=== PATIENT | female | born 1955 | race Caucasian/White ===

== ENCOUNTER → 2021-05-12 12:29 | Outpatient (BNVA) | payer MEDICARE, SELFPAY | PROVIDERS: Visit Provider Nurse Practitioner Family | DX: Z12.11 Encounter for screening for malignant neoplasm of colon (principal); K57.90 Diverticulosis of intestine, part unspecified, without perforation or abscess without bleeding | CPT/HCPCS: Q3014 ==

== ENCOUNTER 2021-07-07 10:09 | Day surgery (SDC) | payer MEDICARE, SELFPAY ==
--- NOTE | 2021-07-06 09:07 | HO.ANESPROP2 ---
Documented by User: Afsaneh Francois NP 07/06/21 09:10 HPI - Anesthesia Eval Consult details Narrative: 65yo F for Colonoscopy PMFSH Past Medical History Medical History Asthma CAD (coronary artery disease) History of depression Hypothyroid Migraines Surgical History Surgical History Hx of colonoscopy Social History Social History Patient Tobacco Use Status: Never used Tobacco Use of substances other than those prescribed or required for medical reasons: No Are you DNR?: No Advance Directives: No Advance Directives Information Provided: Yes Meds Allergies Allergy/AdvReac Type Severity Reaction Status Date / Time acetaminophen [From Tylox] Allergy Mild mild Verified 05/12/21 12:32 diphenhydramine Allergy Mild mild Verified 05/12/21 12:31 [From Benadryl] oxycodone [From Tylox] Allergy Mild mild Verified 05/12/21 12:32 prochlorperazine Allergy Mild mild Verified 05/12/21 12:32 [From Compazine] sumatriptan [From Imitrex] Allergy Mild mild Verified 05/12/21 12:31 azithromycin Allergy Vomiting Verified 07/07/21 10:26 codeine Allergy mild Verified 05/12/21 12:31 sulfamethoxazole Allergy Headache Verified 07/07/21 10:24 [From Bactrim] trimethoprim [From Bactrim] Allergy Headache Verified 07/07/21 10:24 Home Medications Medication Instructions Recorded Confirmed Last Taken Type albuterol sulfate 90 mcg/actuation 2 puff INHALATION Q6H PRN 05/12/21 07/03/21 07/07/21 History aerosol inhaler doxepin 25 mg capsule 25 mg PO DAILY 05/12/21 07/03/21 Unknown History levothyroxine 88 mcg tablet 88 mcg PO DAILY 05/12/21 07/03/21 Unknown History (Levoxyl) verapamil 180 mg 24 hr 180 mg PO DAILY 05/12/21 07/03/21 Unknown History capsule,extended release levalbuterol tartrate 45 INHALATION 07/03/21 07/03/21 Unknown History mcg/actuation aerosol inhaler duloxetine 60 mg capsule,delayed 1 cap PO DAILY 07/07/21 07/07/21 07/07/21 History release Exam Exam Date and Time: July 06, [id number] Assessment and Plan Assessment Anesthesia Assessment: Chart Reviewed Documented by User: Yaneli Ortiz MD 07/07/21 11:06 [facility] Past Medical History Medical History Asthma CAD (coronary artery disease) History of depression Hypothyroid Migraines Family History Family history of problems with anesthesia: No Surgical History Surgical History Hx of colonoscopy History of Problems with Anesthesia: No Social History Social History Patient Tobacco Use Status: Never used Tobacco Use of substances other than those prescribed or required for medical reasons: No Are you DNR?: No Advance Directives: No Advance Directives Information Provided: Yes Meds Allergies Allergy/AdvReac Type Severity Reaction Status Date / Time acetaminophen [From Tylox] Allergy Mild mild Verified 05/12/21 12:32 diphenhydramine Allergy Mild mild Verified 05/12/21 12:31 [From Benadryl] oxycodone [From Tylox] Allergy Mild mild Verified 05/12/21 12:32 prochlorperazine Allergy Mild mild Verified 05/12/21 12:32 [From Compazine] sumatriptan [From Imitrex] Allergy Mild mild Verified 05/12/21 12:31 azithromycin Allergy Vomiting Verified 07/07/21 10:26 codeine Allergy mild Verified 05/12/21 12:31 sulfamethoxazole Allergy Headache Verified 07/07/21 10:24 [From Bactrim] trimethoprim [From Bactrim] Allergy Headache Verified 07/07/21 10:24 Home Medications Medication Instructions Recorded Confirmed Last Taken Type albuterol sulfate 90 mcg/actuation 2 puff INHALATION Q6H PRN 05/12/21 07/03/21 07/07/21 History aerosol inhaler doxepin 25 mg capsule 25 mg PO DAILY 05/12/21 07/03/21 Unknown History levothyroxine 88 mcg tablet 88 mcg PO DAILY 05/12/21 07/03/21 Unknown History (Levoxyl) verapamil 180 mg 24 hr 180 mg PO DAILY 05/12/21 07/03/21 Unknown History capsule,extended release levalbuterol tartrate 45 INHALATION 07/03/21 07/03/21 Unknown History mcg/actuation aerosol inhaler duloxetine 60 mg capsule,delayed 1 cap PO DAILY 07/07/21 07/07/21 07/07/21 History release Exam Airway Mallampati Class: II TM Dist: >3cm Neck ROM: Full Assessment and Plan Assessment Anesthesia Assessment: Anesthesia Plan Discussed Final Anesthetic Review Family History of Problems with Anesthesia: No History of Problems with Anesthesia: No NPO: Yes ASA Class: III Final Preanesthetic Review: No Changes in Pt Med Stat, Meds/Allgs Chart Reviewed, Consent Obtained/Reviewed and Anes Risks/Benef Reviewed Patient Risk: Intermediate Procedure Risk: Low Assessment/Block/Sedation in SS: Assess/Block/Sedation-SS Anesthetic Plan Anesthetic Plan: MAC: Disposition: Standard PACU
[2021-07-07 10:34] VITALS: BMI 20.2
[2021-07-07 10:40] VITALS: BP 131/75; PULSE 72; RESP 16; TEMP 36.7; O2SAT 99
[2021-07-07] MEDS: Lactated Ringers 1,000 ML 100 ML IVCONT (10:56)
--- NOTE | 2021-07-07 11:13 | MHC.SHP ---
Pre-Procedural Eval Section A Date of Service: 07/07/21 The patient is an INPATIENT: No The History & Physical has been completed within 30 days and I have reviewed it.: No Section B Chief Complaint: Screening Details of Present Illness: Colon cancer screening, history of colon polyps Relevant Family History (Specify if Yes): No Relevant Social History: None Present Medications: see Short Stay Collaborative assessment Medical History: Significant History (CAD, asthma, hypothyroidism, depression) History of Previous Operations: Relevant previous surgery/procedure and date(s) (History of colonoscopy) Allergies: Allergies Allergy/AdvReac Type Severity Reaction Status Date / Time acetaminophen [From Tylox] Allergy Mild mild Verified 05/12/21 12:32 diphenhydramine Allergy Mild mild Verified 05/12/21 12:31 [From Benadryl] oxycodone [From Tylox] Allergy Mild mild Verified 05/12/21 12:32 prochlorperazine Allergy Mild mild Verified 05/12/21 12:32 [From Compazine] sumatriptan [From Imitrex] Allergy Mild mild Verified 05/12/21 12:31 azithromycin Allergy Vomiting Verified 07/07/21 10:26 codeine Allergy mild Verified 05/12/21 12:31 sulfamethoxazole Allergy Headache Verified 07/07/21 10:24 [From Bactrim] trimethoprim [From Bactrim] Allergy Headache Verified 07/07/21 10:24 Review of Systems Sugical H&P ROS: Negative: Constitution, Respiratory and Gastrointestinal Exam Surgical H&P Exam: Normal: Heart, Normal: Lungs, Normal: Extremities and Normal: Abdomen Plan Diagnosis/Plan: Unchanged I have reviewed the history and physical and performed a pertinent physical examination on my patient. No changes have occurred unless specified.
--- NOTE | 2021-07-07 11:33 | W.PM.OPN ---
Operative Note Operative Note Date of Service: 07/07/21 Narrative: Pre-op diagnosis:?Colon cancer screening, history of colon polyps Post-op diagnosis:?other (Colon polyps, diverticulosis, hemorrhoids) Procedure:? COLONOSCOPY TILL CCEUM WITH SNARE POLYPECTOMY AND SUBMUCOSAL INJECTION Consent: Indications for the procedure and potential complications of bleeding, perforation, reaction to medications and missed diagnosis were discussed with the patient and informed consent was obtained. Instrument: Olympus PCF H 190 L variable stiffness pediatric colonoscope Monitoring: Vital signs and clinical assessment, intermittent blood pressure monitoring, continuous EKG monitoring, Pulse oximetry and Carbon Dioxide monitoring were done throughout the procedure. Colon withdrawl time was 25 minutes. Procedure: The patient was placed in the left lateral decubitis position and pre-procedure medications were administered. After a digital rectal examination of the ano-rectum, the video colonoscope was inserted into the rectum and advanced through the colon to the cecum. The colonoscope was slowly withdrawn in a retrograde panoramic fashion and the colon mucosa was carefully examined including a retroflexed view of the rectum. Findings and interventions are described below. Procedure Difficulty: Without difficulty Findings: Terminal Ileum: Not evaluated Cecum:? Normal Ascending Colon:? A 2 x 2 cms flat polyp in the distal AC at 60 cms.? Polyp was raised with 6 cc of Orise solution and removed with a hot snare.? Polypectomy site was marked with Mariela ink Transverse Colon:? Normal Descending Colon:? Moderate diverticulosis Sigmoid Colon:? A 1.5 cms polyp removed with a hot snare. Severe diverticulosis Rectum:? Normal Ano-rectum:? Moderate internal hemorrhoids Colon preparation:? Good? after copious irrigation Impression and Post Procedure Diagnosis: Colonoscopy Findings: Two medium sized polyps removed Moderate diverticulosis seen in the left colon Moderate hemorrhoids on retroflexed exam. Plan: Await pathology results Patient has an appointment on 07/21/21 in the GI Clinic with ? Jessica Dominguez, [facility] . Repeat Colonoscopy interval based on path results - in 1-2 years if polyps are adenomatous and to check polypectomy site in the AC and 5 yrs if polyps are hyperplastic. Above findings were reviewed with the patient and colon polyps and diverticulosis handouts were given in the discharge area Surgeon:?Marisa Hernandez MD Anesthesia:?MAC (Lauren Razo CRNA) Was an Cyber Special Agent used for this Procedure?:?Yes Cyber Special Agent:?Shady Garrido Estimated blood loss (mL):?0 Pathology:?other (A. ASCENDING COLON POLYP AT 60 (ORISE USED)? B- SIGMOID POLYP) Condition:?stable Disposition:?PACU
[2021-07-07 12:20] VITALS: BP 122/65; PULSE 67; RESP 15; TEMP 36.6; O2SAT 100
[2021-07-07 12:35] VITALS: BP 136/64; PULSE 60; RESP 16; TEMP 36.6; O2SAT 99
== END 2021-07-07 13:19 | disposition home or self-care (01) ==
PROVIDERS: PCP Family Medicine; Visit Provider Internal Medicine Gastroenterology
PROC: 0DJD8ZZ Inspection of Lower Intestinal Tract, Via Natural or Artificial Opening Endoscopic (ICD-10-PCS; CPT 45378; principal; 2021-07-07 11:40)
DX: Z12.11 Encounter for screening for malignant neoplasm of colon (principal); D12.2 Benign neoplasm of ascending colon; D12.5 Benign neoplasm of sigmoid colon; K57.30 Diverticulosis of large intestine without perforation or abscess without bleeding; K64.8 Other hemorrhoids; Z86.010 Personal history of colon polyps; J45.909 Unspecified asthma, uncomplicated
CPT/HCPCS: 45385; 45381; 88305

== ENCOUNTER → 2022-07-20 10:32 | Outpatient (BNVA) | payer MEDICARE, SELFPAY | PROVIDERS: PCP Family Medicine; Visit Provider Nurse Practitioner Family | DX: D36.9 Benign neoplasm, unspecified site (principal); K57.90 Diverticulosis of intestine, part unspecified, without perforation or abscess without bleeding | CPT/HCPCS: 99212 ==

== ENCOUNTER 2024-09-07 06:49 | Day surgery (SDC) | payer MEDICARE, SELFPAY ==
[2024-09-03 12:54] VITALS: BMI 20.8
--- NOTE | 2024-09-04 12:22 | P.CONAN_ITS ---
Documented by User: Afsaneh Francois NP 09/04/24 12:23 HPI - Anesthesia Eval Consult details Narrative: 69yo F for Colonoscopy PMFSH Active Problems Active Problems: All Active Problems Tubular adenoma (Acute) Past Medical History Medical History (Updated 09/07/24 @ 08:08 by Betsey Adorno, RN) Heart disease Heart attack Palpitations Tubular adenoma History of depression Hypothyroid Migraines Asthma Family History Family history of problems with anesthesia: No Surgical History Surgical History (Updated 09/07/24 @ 07:40 by Betsey Adorno RN) Previous section History of surgery of uterus Hx of colonoscopy History of Problems with Anesthesia: No Social History Social History Are you a primary long term acute care registered nurse to a significant other at home: No Do you presently have visiting nurse or other home services: No Patient Tobacco Use Status: Never used Tobacco Use of substances other than those prescribed or required for medical reasons: No Have you been hit, kicked, punched, or otherwise hurt by someone within the past year? If so, by whom?: No Are you DNR?: No Advance Directives: No Advance Directives Information Provided: Yes Advance Directives on File: No Recently lost weight without trying: No How much weight loss: Not applicable Eating poorly because of decreased appetite: No Nutrition screen score: 0 Nutrition Risks: No Nutritional Risk Patient : No : No Poor oral hygiene: No Meds Allergies Allergy/AdvReac Type Severity Reaction Status Date / Time sulfamethoxazole Allergy Intermediate Headache Verified 09/07/24 07:40 [From Bactrim] trimethoprim [From Bactrim] Allergy Intermediate Headache Verified 09/07/24 07:40 azithromycin Allergy Mild Vomiting Verified 09/07/24 07:40 codeine Allergy Unknown Unknown Verified 09/07/24 07:40 diphenhydramine Allergy Unknown Unknown Verified 09/07/24 07:40 [From Benadryl] oxycodone [From Tylox] Allergy Unknown Unknown Verified 09/07/24 07:40 prochlorperazine Allergy Unknown Unknown Verified 09/07/24 07:40 [From Compazine] sumatriptan [From Imitrex] Allergy Unknown Unknown Verified 09/07/24 07:40 Home Medications ?Medication ?Instructions ?Recorded ?Confirmed ?Last Taken ?Type doxepin 25 mg capsule 25 mg PO DAILY 05/12/21 09/07/24 Unknown History verapamil 180 mg 24 hr 180 mg PO DAILY 05/12/21 09/07/24 09/06/24 History capsule,extended release levalbuterol tartrate 45 2 puff inhalation Q6H PRN Wheezing 07/03/21 09/07/24 Unknown History mcg/actuation aerosol inhaler levothyroxine 75 mcg tablet 75 mcg PO DAILY 09/03/24 09/07/24 Unknown History prazosin 1 mg capsule 1 mg PO BEDTIME 09/03/24 09/07/24 Unknown History Exam Height,Weight and Vital Signs: Height 5 ft 2 in Weight 51.7 kg Assessment and Plan Assessment Anesthesia Assessment: Chart Reviewed Final Anesthetic Review Family History of Problems with Anesthesia: No History of Problems with Anesthesia: No Documented by User: Kingsley Silvestre MD 09/07/24 08:43 [facility] Past Medical History Medical History (Updated 09/07/24 @ 08:08 by Betsey Adorno RN) Heart disease Heart attack Palpitations Tubular adenoma History of depression Hypothyroid Migraines Asthma Surgical History Surgical History (Updated 09/07/24 @ 07:40 by Betsey Adorno RN) Previous section History of surgery of uterus Hx of colonoscopy Social History Social History Are you a primary long term acute care registered nurse to a significant other at home: No Do you presently have visiting nurse or other home services: No Patient Tobacco Use Status: Never used Tobacco Use of substances other than those prescribed or required for medical reasons: No Have you been hit, kicked, punched, or otherwise hurt by someone within the past year? If so, by whom?: No Are you DNR?: No Advance Directives: No Advance Directives Information Provided: Yes Advance Directives on File: No Recently lost weight without trying: No How much weight loss: Not applicable Eating poorly because of decreased appetite: No Nutrition screen score: 0 Nutrition Risks: No Nutritional Risk Patient : No : No Poor oral hygiene: No Meds Allergies Allergy/AdvReac Type Severity Reaction Status Date / Time sulfamethoxazole Allergy Intermediate Headache Verified 09/07/24 07:40 [From Bactrim] trimethoprim [From Bactrim] Allergy Intermediate Headache Verified 09/07/24 07:40 azithromycin Allergy Mild Vomiting Verified 09/07/24 07:40 codeine Allergy Unknown Unknown Verified 09/07/24 07:40 diphenhydramine Allergy Unknown Unknown Verified 09/07/24 07:40 [From Benadryl] oxycodone [From Tylox] Allergy Unknown Unknown Verified 09/07/24 07:40 prochlorperazine Allergy Unknown Unknown Verified 09/07/24 07:40 [From Compazine] sumatriptan [From Imitrex] Allergy Unknown Unknown Verified 09/07/24 07:40 Home Medications ?Medication ?Instructions ?Recorded ?Confirmed ?Last Taken ?Type doxepin 25 mg capsule 25 mg PO DAILY 05/12/21 09/07/24 Unknown History verapamil 180 mg 24 hr 180 mg PO DAILY 05/12/21 09/07/24 09/06/24 History capsule,extended release levalbuterol tartrate 45 2 puff inhalation Q6H PRN Wheezing 07/03/21 09/07/24 Unknown History mcg/actuation aerosol inhaler levothyroxine 75 mcg tablet 75 mcg PO DAILY 09/03/24 09/07/24 Unknown History prazosin 1 mg capsule 1 mg PO BEDTIME 09/03/24 09/07/24 Unknown History Exam Airway Mallampati Class: II TM Dist: >3cm Neck ROM: Full Assessment and Plan Assessment Anesthesia Assessment: Anesthesia Plan Discussed Final Anesthetic Review NPO: Yes ASA Class: II Final Preanesthetic Review: No Changes in Pt Med Stat, Meds/Allgs Chart Reviewed, Consent Obtained/Reviewed and Anes Risks/Benef Reviewed Patient Risk: Intermediate Procedure Risk: Low Anesthetic Plan Anesthetic Plan: TIVA Disposition: Standard PACU
[2024-09-07 08:03] VITALS: BP 144/74; PULSE 69; RESP 16; TEMP 37; O2SAT 99; BMI 20.7
--- NOTE | 2024-09-07 08:43 | MHC.SHP ---
Pre-Procedural Eval Section A - 24 Hr Update-Section A only Date of Service: 09/07/24 Section B - Complete if H&P > 30 days Chief Complaint: Benign neoplasm, Details of Present Illness: Asthma CAD (coronary artery disease) History of depression Hypothyroid Migraines Tubular adenoma Surgical History Hx of colonoscopy Present Medications: see Short Stay Collaborative assessment Allergies: Allergies Allergy/AdvReac Type Severity Reaction Status Date / Time sulfamethoxazole Allergy Intermediate Headache Verified 09/07/24 07:40 [From Bactrim] trimethoprim [From Bactrim] Allergy Intermediate Headache Verified 09/07/24 07:40 azithromycin Allergy Mild Vomiting Verified 09/07/24 07:40 codeine Allergy Unknown Unknown Verified 09/07/24 07:40 diphenhydramine Allergy Unknown Unknown Verified 09/07/24 07:40 [From Benadryl] oxycodone [From Tylox] Allergy Unknown Unknown Verified 09/07/24 07:40 prochlorperazine Allergy Unknown Unknown Verified 09/07/24 07:40 [From Compazine] sumatriptan [From Imitrex] Allergy Unknown Unknown Verified 09/07/24 07:40 Review of Systems Review of Systems Comment: Ten point ROS negative Exam Exam Comment: Gen appear: No acute distress HEENT: no icterus Chest: No overt resp distress Abd: soft, nontender, nondistended Psych: Stable affect, answering questions appropriately Neuro: A/Ox3 noted to move all extremities spontaneously Ext: no peripheral edema Plan Diagnosis/Plan: Unchanged I have reviewed the history and physical and performed a pertinent physical examination on my patient. No changes have occurred unless specified. Time Spent With Patient Time: Total time managing care of this patient today ____ minutes.
[2024-09-07] MEDS: Lactated Ringers 1,000 ML 100 ML IVCONT (08:48)
--- NOTE | 2024-09-07 08:52 | P.OPN-COLO_ITS ---
Colonoscopy Operative Note Operative Note Date of Service: 09/07/24 Narrative: Procedure: Colonoscopy Indication: Personal history of polyps Endoscopist: Jessica Ha MD Anesthesia Provider: Kingsley Silvestre MD Anesthesia type: MAC Instrument: Olympus PCF-H190L Consent: Indication, risks vs benefits, and alternatives were discussed with the patient who gave written informed consent to proceed. EKG, pulse, pulse oximetry and blood pressure were monitored throughout the procedure. Please see anesthesia flowsheet. Procedure: The patient was brought to the procedure room and placed in the left lateral decubitus position. IV medications were administered by the anesthesia provider in attendance. A digital rectal exam was performed which was abnormal due to finding of hemorrhoids. A distal attachment cap was affixed to the tip of the colonoscope which was then inserted through the anus and advanced through the colon to the cecum at 80 cm,and terminal ileum. Appendiceal orifice and ileocecal valve were identified. Mucosa was carefully examined under high definition white light as the instrument was slowly withdrawn in a retrograde panoramic fashion. Retroflexion was performed in rectum. The procedure was not difficult. There were no immediate obvious complications. The quality of the prep was BBPS: 3+2+2 = adequate Withdrawal time 10 minutes. Limitations: No limitations. Findings: Mucosa: Normal to cecum and terminal ileum. A previous tattoo was noted in ascending colon/transverse colon at 70 cm. No residual polyp was seen under examination with HDWL or NBI. Protruding lesions: * Large internal hemorrhoids without stigmata of recent bleeding. Excavated lesions: * Moderate to severe diverticulosis of left sided colon. Impression: 1. Normal colon mucosa with no residual polyp noted at previous tattoo site 2. Diverticulosis 3. External and internal hemorrhoids Recommendations: - Repeat colonoscopy recommended in 5 years due to hx of advanced polyps
[2024-09-07 09:18] VITALS: BP 111/62; PULSE 63; RESP 15; TEMP 36.2; O2SAT 99
[2024-09-07 09:33] VITALS: BP 127/75; PULSE 63; RESP 16; TEMP 36.2; O2SAT 99
== END 2024-09-07 10:05 | disposition home or self-care (01) ==
PROVIDERS: Internal Medicine Gastroenterology; PCP Family Medicine; Visit Provider Internal Medicine
PROC: 0DJD8ZZ Inspection of Lower Intestinal Tract, Via Natural or Artificial Opening Endoscopic (ICD-10-PCS; CPT 45378; principal; 2024-09-07 08:30)
DX: Z12.11 Encounter for screening for malignant neoplasm of colon (principal); Z86.0101 Personal history of adenomatous and serrated colon polyps; K57.30 Diverticulosis of large intestine without perforation or abscess without bleeding; K64.8 Other hemorrhoids; Z87.19 Personal history of other diseases of the digestive system; K64.4 Residual hemorrhoidal skin tags; I25.10 Atherosclerotic heart disease of native coronary artery without angina pectoris; I25.2 Old myocardial infarction; J45.909 Unspecified asthma, uncomplicated; E03.9 Hypothyroidism, unspecified; Z79.899 Other long term (current) drug therapy; Z88.1 Allergy status to other antibiotic agents; Z88.2 Allergy status to sulfonamides; Z88.5 Allergy status to narcotic agent; Z88.8 Allergy status to other drugs, medicaments and biological substances
CPT/HCPCS: G0105; J2003; J2704

== ENCOUNTER → 2024-09-07 06:49 | Outpatient (BNV) | payer MEDICARE, SELFPAY | PROVIDERS: PCP Family Medicine; Visit Provider Internal Medicine | DX: Z12.11 Encounter for screening for malignant neoplasm of colon (principal); Z86.0100 Personal history of colon polyps, unspecified; K57.30 Diverticulosis of large intestine without perforation or abscess without bleeding; K64.8 Other hemorrhoids | CPT/HCPCS: G0105 ==